=== PATIENT | female | born 1960 | race Caucasian/White ===

== ENCOUNTER → 2021-10-25 | Outpatient (CLI) | payer OTHER | END | disposition home or self-care (01) | LOC: RAH 13:13 | PROVIDERS: ATTEND Nurse Practitioner Family | DX: Z12.31 Encounter for screening mammogram for malignant neoplasm of breast (principal) | CPT/HCPCS: 77067 ==

== ENCOUNTER → 2022-04-25 | Outpatient (CLI) | payer OTHER | END | disposition home or self-care (01) | LOC: RAH 08:09 | PROVIDERS: ATTEND Internal Medicine Cardiovascular Disease | DX: I73.9 Peripheral vascular disease, unspecified (principal) | CPT/HCPCS: 93922 ==

== ENCOUNTER → 2022-05-21 | Outpatient (CLI) | payer OTHER | END | disposition home or self-care (01) | LOC: RAH 13:15 | PROVIDERS: ATTEND Internal Medicine Cardiovascular Disease | DX: Z13.6 Encounter for screening for cardiovascular disorders (principal) | CPT/HCPCS: 75571 ==

== ENCOUNTER → 2023-04-25 | Outpatient (CLI) | payer OTHER | END | disposition home or self-care (01) | LOC: RAH 07:26 | PROVIDERS: ATTEND Physical Medicine & Rehabilitation | DX: M41.85 Other forms of scoliosis, thoracolumbar region (principal); M41.9 Scoliosis, unspecified; M99.04 Segmental and somatic dysfunction of sacral region; M25.551 Pain in right hip; M54.50 Low back pain, unspecified; M47.816 Spondylosis without myelopathy or radiculopathy, lumbar region; M85.88 Other specified disorders of bone density and structure, other site | CPT/HCPCS: 72081; 72110 ==

== ENCOUNTER → 2024-08-27 | Outpatient (CLI) | payer MEDICARE, OTHER ==
--- NOTE | 2024-08-27 14:21 | HMCIMG ---
MRI OF THE LUMBAR SPINE WITHOUT GADOLINIUM Clinical Information: Comparison: Findings: Technique: Sagittal T1 and T2 FSE, Sagittal STIR and Sagittal proton density images were completed through the lumbosacral spine. Axial T1, T2 and proton density images were also acquired. FINDINGS: Examination shows adequate alignment of the vertebral bodies of the lumbar spine. No fractures or dislocations are identified.The bone marrow signal is normal for age. The spinal canal contents are preserved. The conus terminates at a normal level at T12 to L2. The paraspinal muscles and other tissues show no significant abnormalities. Evaluation of the lumbar spine by level: T12-L1: There is no spinal canal stenosis. No disc protrusion or extrusion is noted. There is no neural foraminal stenosis, impingement, or narrowing. L1-L2: There is no spinal canal stenosis. No disc protrusion or extrusion is noted. There is no neural foraminal stenosis, impingement, or narrowing. L2-L3: There is a broad-based central zone disc protrusion causing neural foramina narrowing bilaterally at this level. No nerve root impingement. L3-L4: There is a broad-based central zone disc protrusion causing neural foramina narrowing bilaterally at this level. Bilateral nerve root impingement seen as well. L4-L5: There is a broad-based central zone disc protrusion causing neural foramina narrowing bilaterally at this level. Bilateral nerve root impingement seen as well. L5-S1: There is no spinal canal stenosis. No disc protrusion or extrusion is noted. There is no neural foraminal stenosis, impingement, or narrowing. Impression: Broad-based central zone disc protrusions at L2-3, L3-4, and L4-5, causing neural foraminal narrowing bilaterally. Bilateral nerve root impingement seen at L3-4 and L4-5.
== END | disposition home or self-care (01) ==
LOC: RAH 13:13
PROVIDERS: ATTEND Anesthesiology Pain Medicine
DX: M48.061 Spinal stenosis, lumbar region without neurogenic claudication (principal); M51.26 Other intervertebral disc displacement, lumbar region; M25.80 Other specified joint disorders, unspecified joint
CPT/HCPCS: 72148

== ENCOUNTER → 2025-05-30 | Outpatient (CLI) | payer MEDICARE ==
--- NOTE | 2025-05-30 22:46 | HMCIMG ---
EXAM: CR Lumbar Spine, 4 View. CLINICAL HISTORY: SACROILIITIS; LOW BACK PAIN COMPARISON: None provided. FINDINGS: BONES: No acute fracture or aggressively appearing osseous lesion. ALIGNMENT: Alignment is within normal limits. No significant scoliosis. DISCS / DEGENERATIVE CHANGES: Narrowing of intervertebral disc spaces and anterior osteophytes at L2-L3, L3-L4, and L4-L5 levels, most pronounced at the L4-L5 level. Facet joint arthropathy at L3-L4, L4-L5, and L5-S1 levels. The rest of the disc spaces are preserved. Sacroiliac joints are symmetric with preserved joint spaces, smooth cortical margins, and no erosions, subchondral sclerosis, ankylosis, or focal widening to suggest radiographic sacroiliitis. SOFT TISSUES: The soft tissues are unremarkable. MISCELLANEOUS: Fecal loading of large bowel loops. IMPRESSION: 1. No acute osseous injury. 2. Degenerative changes of the lumbar spine, most pronounced at L4-L5. 3. No evidence of sacroiliitis. 4. Fecal loading of large bowel loops. /Voca
== END | disposition home or self-care (01) ==
LOC: RAH 07:55
PROVIDERS: ATTEND Physical Medicine & Rehabilitation
DX: M47.817 Spondylosis without myelopathy or radiculopathy, lumbosacral region (principal); M46.1 Sacroiliitis, not elsewhere classified; M47.816 Spondylosis without myelopathy or radiculopathy, lumbar region; M51.360 Other intervertebral disc degeneration, lumbar region with discogenic back pain only; M25.78 Osteophyte, vertebrae; M48.061 Spinal stenosis, lumbar region without neurogenic claudication
CPT/HCPCS: 72114